=== PATIENT | male | born 1980 | race African-American/Black ===

== ENCOUNTER 2017-03-04 23:09 | Emergency (ER) | payer SELFPAY ==
[2017-03-04 23:20] VITALS: BP 132/83; BMI 23.5
--- NOTE | 2017-03-04 23:48 | DR.GENAD ---
HPI - HPI Comment HPI Comment: WORSE TONIGHT. SOME CHEST PAIN AND HEADACHE PRESENT. LOSE BOWEL AND N/V PRESENT ALSO. - Complaint/Symptoms Chief Complaint Doctors Comments: COUGH, COLD CONGESTION, FEVER AND SORE THROAT TIMES 3 DAYS. Chief Complaint:: PATIENT C/O OF HEADACHE,SORE THROAT, AND HAVENT ATE, N/V, LOOSE BOWELS FOR THREE DAY. PATIENT C/O OF NIGHT SWEATS. Self Treatment fo Chief Complaint: DAY QUILL FOR COLD AND FLU, TYLENOL SEVERE. - Nurses notes reviewed Nurses Notes Review: Yes - Source History Provided: Patient - Mode of Arrival Mode of Arrival: Ambulatory - Timing Onset of Chief Complaint: 03/01/17 Came on: Suddenly - Duration Duration: Constant Duration: Days - Severity Severity: Moderate PMH - PMH Past Medical History: No Past Surgical History: No - Family History History of Family Medical Conditions: Yes Family Medical History: Diabetes Mellitus - Social History Does patient currently use any type of tobacco product: Yes Have you used tobacco products in the last 12 months: Yes Type of Tobacco Use: Cigarettes How many years tobacco product used: 15 Does any household member use tobacco: Yes Alcohol Use: None Do you use any recreational Drugs:: No Lives With: Family - infectious screening In the last 2 months have you had wt loss of >10#?: NO Have you had fever, night sweats or hemotysis?: Yes Have you traveled outside the country in the last 6 months?: No Isolation: Standard ROS - Review of Systems Constitutional: Chills, Fever, Weakness, Fatigue, Loss of Appetite Eyes: No Symptoms Reported. negative: Eye Pain, Discharge ENTM: Nose Discharge, Nose Congestion, Mouth Pain. negative: Ear Pain Respiratoy: Productive Cough (YELLOW SPUTUM.). negative: Short of Breath, Wheezing Cardiovascular: Chest Pain Gastrointestinal/Abdominal: Abdominal Pain, Diarrhea, Nausea, Vomiting Genitourinary: No Symptoms Reported. negative: Dysuria, Frequency, Hematuria Neurological: Headache, Weakness, Dizziness Musculoskeletal: Back Pain, Muscle Pain Integumentary: No Symptoms Reported. negative: Change in Color, Rash, Juandice Hematologic/Lymphatic: No Symptoms Reported Endocrine: No Symptoms Reported All Other Systems: Reviewed and Negative PE - Vital Signs Vitals: Temperature 99.1 F Pulse Rate 20 Respiratory Rate 96 Blood Pressure 132/83 O2 Sat by Pulse Oximetry 95 - General Limitations: No Limitations General Appearance: Alert - Head Head Exam: Normal Inspection - Eyes Eye exam: Normal Appearance - ENT ENT Exam: Normal External Ear Exam External Ear Exam: Normal External Inspection TM/Canal Exam: Bilateral Bulging Nose Exam: Normal Nose Exam Mouth Exam: Normal Inspection Throat Exam: Normal Inspection - Neck Neck Exam: Normal Inspection - Chest Chest Inspection: Symmetric Chest Wall Rise - Respiratory Respiratory Exam: Normal Lung Sounds Bilat Respiratory Exam: Bilateral Rhonchi - Cardiovascular Cardiovascular Exam: Regular Rate, Normal Rhythm, Normal Heart Sounds - Abdominal Exam Abdominal Exam: Normal Bowel Sounds, Soft. negative: Tenderness - Extremities Extremities Exam: Normal Inspection - Back Back Exam: Normal Inspection - Neurologic Neurological Exam: Alert, Oriented X3 - Psychiatric Psychiatric Exam: Normal Affect, Normal Mood - Skin Skin Exam: Normal Color MDM - Differential Diagnosis Differential Diagnosis: STREP THROAT, SINUSITIS, BRONCHITIS, PNEUMONIA. Course - Treatment Treatment: SEE ORDERS. - Education/Counseling Education/Counseling: Patient, Education Educated On: Treatment, Diagnosis, Needs for Follow Up ROR - Labs Reviewed Laboratory Results Reviewed?: Yes Laboratory: Influenza Type A (PCR) Negative (NEGATIVE) 03/05/17 00:01 Influenza Type B (PCR) Negative (NEGATIVE) 03/05/17 00:01 Streptococcus Screen Negative (NEGATIVE) 03/05/17 00:01 - Diagnosis Discharge Problem: Bronchitis Sinusitis Qualifiers: Sinusitis location: unspecified location Chronicity: acute Recurrence: not specified as recurrent Qualified Code(s): J01.90 - Acute sinusitis, unspecified - Discharge Plan Condition: Stable Prescriptions: Amoxicillin [Amoxil 875 mg] 875 mg PO Q12H #20 tab Benzonatate [TESSALON PERLES *] 200 mg PO TID PRN #30 cap PRN Reason: Cough Cetirizine HCl [Zyrtec Tab 10 mg] 10 mg PO DAILY PRN #10 tab PRN Reason: - Follow ups/Referrals Follow ups/Referrals: [facility],None [Primary Care Provider] - 3 days - Instructions Instructions: Acute Bronchitis, [id number], Sinusitis, Adult, [id number] Additional Instructions: RETURN TO ED IF WORSE.
[2017-03-05] MEDS ORDERED: AMOXIL CAP 500 MG PO ONE ×2 (01:09→01:21)
[2017-03-05] MEDS ORDERED: ZyrTEC TAB 10 MG PO ONE (01:12)
[2017-03-05] MEDS ORDERED: TESSALON PERLES PO ONE ×2 (01:12→01:19)
[2017-03-05] MEDS ORDERED: ZyrTEC TAB 10 MG ONE (01:21)
== END 2017-03-05 01:30 | disposition home or self-care (01) ==
LOC: ER 23:09
DX: J40 Bronchitis, not specified as acute or chronic (principal); J01.80 Other acute sinusitis
CPT/HCPCS: 87070; 87502; 87880; 99282